=== PATIENT | female | born 1975 | race Hispanic/Latino ===

== ENCOUNTER 2023-10-28 17:40 | Emergency (ER) | payer BC ==
[~2023-10-28] VITALS: Ht 154.9 cm; Wt 46.3 kg
[2023-10-28 17:50] VITALS: BP 123/69; PULSE 116; RESP 16
== END 2023-10-28 19:49 | disposition left against medical advice (07) ==
LOC: EDH 17:40
DX: R11.2 Nausea with vomiting, unspecified (principal); R19.7 Diarrhea, unspecified; Z53.21 Procedure and treatment not carried out due to patient leaving prior to being seen by health care provider

== ENCOUNTER → 2024-02-10 | Outpatient (CLI) | payer BC | END | disposition home or self-care (01) | LOC: RAH 15:04 | PROVIDERS: ATTEND Anesthesiology Pain Medicine | DX: M47.22 Other spondylosis with radiculopathy, cervical region (principal); M48.02 Spinal stenosis, cervical region | CPT/HCPCS: 72141 ==